=== PATIENT | female | born 1930 | race African-American/Black ===

== ENCOUNTER 2018-10-28 08:19 | Inpatient (IN) | payer MEDICARE ==
[~2018-10-28] VITALS: Ht 160 cm; Wt 49.0 kg
[2018-10-28] MEDS ORDERED: ALBUTEROL SULFATE 2.5 MG/0.5 ML NEB SOLUTION NEB ONE (08:30)
[2018-10-28] MEDS ORDERED: VECURONIUM BROMIDE 10 MG/VIAL IVP ONE ×2 (08:30→12:00)
[2018-10-28] MEDS ORDERED: MethylPREDNISolone SOD SUCC 125 MG/2 ML VIAL IVP ONE (08:30)
[2018-10-28] MEDS ORDERED: CefTRIAXone 1 GM/DEXTROSE 50 ML IV ONE (08:30)
[2018-10-28] MEDS ORDERED: KETAMINE HCL 50 MG/ML 10 ML VIAL IVP ONE (08:30)
[2018-10-28] MEDS ORDERED: IPRATROPIUM BROMIDE 0.5 MG/2.5 ML NEB SOLUTION NEB ONE (08:30)
[2018-10-28 08:46] LABS: ABG A-A DIFF O2 103.6 mmHg (10-20.0); ABG BASE EXCESS 1.3 mmol/L (-2.0-3.0); ABG CARBOXYHEMOGLOBIN 0.3 % (0.0-1.5); ABG HCO3 24.9 mmol/L (22.0-26.0); ABG METHEMOGLOBIN 0.3 % (0.0-1.5); ABG OXYGEN CONTENT 15.2 mL/dL (15.0-23.0); ABG OXYGEN SATURATION 99.7 % (95.0-98.0); ABG OXYHEMOGLOBIN 99.1 % (94.0-100.0); ABG PCO2 62 mmHg (35-45); ABG PH 7.275 (7.35-7.450); ABG TOTAL HEMOGLOBIN 9.8 G/dL (12.0-18.0); PO2, ARTERIAL BG 549.7 mmHg (71.0-79.0); SITE, BLOOD GAS RT RADIAL; SOURCE, BLOOD GAS ARTERIAL; TEMPERATURE, FAHRENHEIT, BG 97.2 FAHREN (96.0-98.6)
[2018-10-28 08:47] LABS: O2 DEVICE,BLOOD GAS VENTILATOR (ROOM AIR); PEEP,BG 5 cm H2O; SPONTANEOUS VT, BG 462 ml; VT, ABG 500 ml
[2018-10-28 08:53] LABS: APPEARANCE,URINE CLEAR (CLEAR); BILIRUBIN,URINE NEGATIVE (NEGATIVE); GLUCOSE, URINE (UA) NEGATIVE (NEGATIVE); KETONES,URINE NEGATIVE (NEGATIVE); LEUKOCYTE ESTERASE ,URINE NEGATIVE (NEGATIVE); NITRATE,URINE NEGATIVE (NEGATIVE); OCCULT BLOOD,URINE TRACE (NEGATIVE); PH,URINE 6.5 (5.0-8.0); PROTEIN,URINE SEE CONFIRM (NEGATIVE); UROBILINOGEN,URINE 0.2 mg/dL (<=1.0)
[2018-10-28] MEDS: PROPOFOL 1000 MG/ISO-OSM 100 ML IV PRN ×3 (08:53→23:03)
[2018-10-28 09:08] LABS: SULFOSALICYLIC ACID,URINE 1+ (Negative); WBC,URINE 0-2 /HPF (0-5)
[2018-10-28 09:09] LABS: BACTERIA,URINE None Seen /HPF (None Seen); SQUAMOUS EPITHELIAL CELL,UR Few /LPF (None Seen)
[2018-10-28 09:29] LABS: TROPONIN I 0.04 ng/mL (0.00-0.05)
[2018-10-28] MEDS ORDERED: SODIUM CHLORIDE 0.9% 1,000 ML IV ONE ×2 (09:30→10:45)
[2018-10-28 09:43] LABS: BASOPHILS % (AUTO) 0.4 % (0.0-2.0); EOSINOPHILS % (AUTO) 2.1 % (1.0-6.0); HEMATOCRIT 23.5 % (36-46); HEMOGLOBIN 7.6 g/dL (12.0-16.0); LYMPHOCYTES # (AUTO) 1.2 K/uL (1.0-4.8); LYMPHOCYTES % (AUTO) 10.3 % (22.0-44.0); MEAN CORPUSCULAR HEMOGLOBIN 25.1 pg (26.0-34.0); MEAN CORPUSCULAR HGB CONC 32.5 G/dL (31.0-37.0); MEAN CORPUSCULAR VOLUME 77 fL (80-100); MONOCYTES # (AUTO) 0.4 K/uL (0.1-1.0); MONOCYTES % (AUTO) 3.3 % (2.0-9.0); NEUTROPHILS % (AUTO) 83.9 % (40.0-70.0); PLATELET COUNT (AUTO) 436 K/uL (150-450); RED BLOOD CELL COUNT(AUTO) 3.03 MIL/uL (4.00-5.20); RED CELL DISTRIBUTION WIDTH 15.4 % (11.5-14.5)
[2018-10-28 09:51] LABS: ANION GAP 10 mmol/L (8-16); CALCIUM, TOTAL 9.2 mg/dL (8.8-10.5); CARBON DIOXIDE 27 mmol/L (22-29); CHLORIDE 96 mmol/L (98-107); CREATININE 1.39 mg/dL (0.60-1.30); GLOMERULAR FILTR. RATE CALC 43 mL/min (>60); GLUCOSE,RANDOM 269 mg/dL (70-110); POTASSIUM 3.1 mmol/L (3.5-5.1); SODIUM SERUM 133 mmol/L (136-145); UREA NITROGEN, BLOOD 29 mg/dL (7-18)
[2018-10-28 09:57] LABS: ALANINE AMINOTRANSFERASE 66 U/L (12-78); ALBUMIN 2.9 g/dL (3.4-5.0); ALKALINE PHOSPHATASE 90 U/L (46-116); ASPARTATE AMINOTRANSFERASE 76 U/L (15-37); BILIRUBIN,TOTAL 0.4 mg/dL (0.1-1.0); LIPASE 109 U/L (73-393); TOTAL PROTEIN, SERUM 6.9 g/dL (6.4-8.2)
[2018-10-28] MEDS ORDERED: 0.9% SODIUM CHLORIDE 10 ML SYRINGE IVP PRN (10:00)
[2018-10-28] MEDS ORDERED: ONDANSETRON HCL 4 MG/2 ML VIAL IVP PRN (10:00)
[2018-10-28 10:01] LABS: B-TYPE NATRIURETIC PEPTIDE 661 pg/mL (0-100)
[2018-10-28 10:02] LABS: LACTIC ACID 2.8 mmol/L (0.4-2.0)
[2018-10-28 10:13] LABS: RETICULOCYTE % (AUTO) 1.9 % (0.5-2.3)
[2018-10-28] MEDS ORDERED: AZITHROMYCIN 500 MG/NS 250 ML IV ONE (10:15)
[2018-10-28] MEDS ORDERED: POTASSIUM CHL 10 MEQ/WATER 50 ML IV ONE (10:15)
[2018-10-28 10:43] LABS: % IRON SATURATION 15.9 % (22-44)
[2018-10-28] MEDS ORDERED: POTASSIUM CHLORIDE 20 MEQ ER TABLET PO PRN (10:45)
[2018-10-28] MEDS ORDERED: DEXTROSE 50%-WATER 25 GM/50 ML SYRINGE IVP PRN (10:45)
[2018-10-28] MEDS ORDERED: MAGNESIUM HYDROXIDE SUSPENSION 30 ML UDCUP PO PRN (10:45)
[2018-10-28] MEDS ORDERED: VALS320T2 PO (10:50)
[2018-10-28] MEDS ORDERED: METO100T14 PO (10:50)
[2018-10-28] MEDS ORDERED: CLOP75TA3 PO (10:50)
[2018-10-28] MEDS ORDERED: ALPR0.255 PO (10:50)
[2018-10-28] MEDS ORDERED: AMLO10TA55 PO (10:50)
[2018-10-28] MEDS ORDERED: ROSU10TA22 PO (10:50)
[2018-10-28] MEDS ORDERED: CHOL10002 PO (10:50)
[2018-10-28] MEDS ORDERED: ALBU8.5H8 IH (10:50)
[2018-10-28 10:57] LABS: ABG A-A DIFF O2 116.2 mmHg (10-20.0); ABG BASE EXCESS 2.8 mmol/L (-2.0-3.0); ABG CARBOXYHEMOGLOBIN 0.3 % (0.0-1.5); ABG HCO3 26.5 mmol/L (22.0-26.0); ABG METHEMOGLOBIN 0.3 % (0.0-1.5); ABG OXYGEN CONTENT 12.6 mL/dL (15.0-23.0); ABG OXYGEN SATURATION 97.4 % (95.0-98.0); ABG OXYHEMOGLOBIN 96.8 % (94.0-100.0); ABG PCO2 51 mmHg (35-45); ABG PH 7.362 (7.35-7.450); ABG TOTAL HEMOGLOBIN 9.1 G/dL (12.0-18.0); PO2, ARTERIAL BG 111.7 mmHg (71.0-79.0); SOURCE, BLOOD GAS ARTERIAL; TEMPERATURE, FAHRENHEIT, BG 96.6 FAHREN (96.0-98.6)
[2018-10-28 10:58] LABS: O2 DEVICE,BLOOD GAS VENTILATOR (ROOM AIR); PEEP,BG 5 cm H2O; SITE, BLOOD GAS RT RADIAL; SPONTANEOUS VT, BG 408 ml; VT, ABG 450 ml
[2018-10-28] MEDS: IPRATROPIUM BROMIDE 0.5 MG/2.5 ML NEB SOLUTION NEB SCH ×3 (11:00→19:19)
[2018-10-28] MEDS: ALBUTEROL SULFATE 2.5 MG/0.5 ML NEB SOLUTION NEB SCH ×3 (11:00→19:20)
[2018-10-28] MEDS: FUROSEMIDE 20 MG/2 ML VIAL IVP SCH (11:49)
[2018-10-28 12:15] LABS: INFLUENZA TYPE A NEGATIVE FOR TYPE A (NEGATIVE); INFLUENZA TYPE B NEGATIVE FOR TYPE B (NEGATIVE)
[2018-10-28] MEDS: MethylPREDNISolone SOD SUCC 125 MG/2 ML VIAL IVP SCH ×2 (12:34→18:40)
[2018-10-28 14:04] LABS: GLUCOSE,POINT OF CARE 230 MG/DL (70-110)
[2018-10-28] MEDS: INSULIN LISPRO 100 UNITS/ML SQ PRN ×2 (15:03→23:21)
[2018-10-28] MEDS ORDERED: HEPARIN SODIUM,PORCINE 5,000 UNITS/ML VIAL SQ SCH (16:00)
[2018-10-28] MEDS ORDERED: HEPARIN SODIUM,PORCINE 5,000 UNITS/ML VIAL IVP PRN ×2 (19:00)
[2018-10-28] MEDS ORDERED: HEPARIN SODIUM 25000 UNITS/D5W 250 ML IV PRN (19:11)
[2018-10-28 20:00] VITALS: BP 152/69
[2018-10-28] MEDS: DOCUSATE SODIUM 100 MG CAPSULE PO SCH (21:20)
[2018-10-28] MEDS: FAMOTIDINE 20 MG TABLET PO SCH (21:20)
[2018-10-28] MEDS: ATORVASTATIN CALCIUM 20 MG TABLET PO SCH (21:20)
[2018-10-28] MEDS ORDERED: SODIUM CHLORIDE 0.9% 250 ML IV ONE (22:08)
[2018-10-28] MEDS: PIPERACILLIN/TAZO 3.375 GM/D5W 50 ML IV SCH (22:26)
[2018-10-28] MEDS ORDERED: PROPOFOL 1000 MG/ISO-OSM 100 ML IV ONE (22:57)
[2018-10-28] MEDS: DOXYCYCLINE HYCLATE 100 MG in DEXTROSE 5%-WATER 100 ML IV SCH (23:02)
[2018-10-29] VITALS (7 sets, daily range): BP systolic 143–179; BP diastolic 41–59
[2018-10-29] MEDS: MethylPREDNISolone SOD SUCC 125 MG/2 ML VIAL IVP SCH ×5 (00:05→23:31)
[2018-10-29] MEDS: PIPERACILLIN/TAZO 3.375 GM/D5W 50 ML IV SCH ×4 (03:57→21:45)
[2018-10-29 05:01] LABS: BASOPHILS % (AUTO) 0.7 % (0.0-2.0); EOSINOPHILS % (AUTO) 0 % (1.0-6.0); HEMATOCRIT 24.2 % (36-46); HEMOGLOBIN 8.3 g/dL (12.0-16.0); LYMPHOCYTES # (AUTO) 1.1 K/uL (1.0-4.8); LYMPHOCYTES % (AUTO) 7.6 % (22.0-44.0); MEAN CORPUSCULAR HGB CONC 34.2 G/dL (31.0-37.0); MEAN CORPUSCULAR VOLUME 76 fL (80-100); MONOCYTES # (AUTO) 0.2 K/uL (0.1-1.0); MONOCYTES % (AUTO) 1.5 % (2.0-9.0); NEUTROPHILS # (AUTO) 12.7 K/uL (1.8-7.7); PLATELET COUNT (AUTO) 375 K/uL (150-450); RED BLOOD CELL COUNT(AUTO) 3.19 MIL/uL (4.00-5.20); RED CELL DISTRIBUTION WIDTH 15.4 % (11.5-14.5)
[2018-10-29 05:02] LABS: NEUTROPHILS % (AUTO) 90.2 % (40.0-70.0)
[2018-10-29] MEDS: PROPOFOL 1000 MG/ISO-OSM 100 ML IV PRN ×3 (05:31→21:45)
[2018-10-29] MEDS ORDERED: DIGOXIN 250 MCG/ML 2 ML AMP ONE (05:58)
[2018-10-29] MEDS ORDERED: DIGOXIN 250 MCG/ML 2 ML AMP IVP ONE ×2 (06:00→11:59)
[2018-10-29 06:06] LABS: CALCIUM, TOTAL 8.9 mg/dL (8.8-10.5); CREATININE 1.13 mg/dL (0.60-1.30)
[2018-10-29 06:07] LABS: POTASSIUM 2.9 mmol/L (3.5-5.1)
[2018-10-29] MEDS: INSULIN LISPRO 100 UNITS/ML SQ PRN ×4 (06:10→23:33)
[2018-10-29] MEDS ORDERED: CARVEDILOL 3.125 MG TABLET PO SCH (06:15)
[2018-10-29] MEDS: POTASSIUM CHL 10 MEQ/WATER 50 ML IV PRN ×6 (06:16→23:31)
[2018-10-29 07:29] LABS: GLUCOSE,POINT OF CARE 198 MG/DL (70-110)
[2018-10-29 07:29] LABS: GLUCOSE,POINT OF CARE 211 MG/DL (70-110)
[2018-10-29] MEDS: ACETAMINOPHEN 325 MG TABLET PO PRN ×3 (08:00→20:06)
[2018-10-29 08:23] LABS: MAGNESIUM 1.6 mg/dL (1.80-2.40)
[2018-10-29] MEDS: FAMOTIDINE 20 MG TABLET PO SCH ×2 (08:41→20:05)
[2018-10-29] MEDS: CLOPIDOGREL BISULFATE 75 MG TABLET PO SCH (08:41)
[2018-10-29] MEDS: DOCUSATE SODIUM 100 MG CAPSULE PO SCH ×2 (08:41→20:05)
[2018-10-29] MEDS: ASPIRIN 81 MG CHEWABLE TABLET PO SCH (08:42)
[2018-10-29] MEDS: FUROSEMIDE 20 MG/2 ML VIAL IVP SCH (08:42)
[2018-10-29] MEDS ORDERED: CARVEDILOL 6.25 MG TABLET PO SCH ×2 (09:00→21:00)
[2018-10-29] MEDS ORDERED: MAGNESIUM SULFATE 2 GM/WATER 50 ML IV PRN (09:30)
[2018-10-29] MEDS ORDERED: MAGNESIUM SULFATE 4 GM/WATER 100 ML IV PRN (09:30)
[2018-10-29] MEDS ORDERED: MAGNESIUM OXIDE 400 MG TABLET PO PRN (09:30)
[2018-10-29] MEDS ORDERED: CefTRIAXone 1 GM/DEXTROSE 50 ML IV SCH (10:00)
[2018-10-29] MEDS ORDERED: AZITHROMYCIN 500 MG/NS 250 ML IV SCH (10:30)
[2018-10-29] MEDS: DOXYCYCLINE HYCLATE 100 MG in DEXTROSE 5%-WATER 100 ML IV SCH ×2 (11:12→23:04)
[2018-10-29] MEDS ORDERED: HEPARIN SODIUM,PORCINE 5,000 UNITS/ML VIAL IVP PRN ×2 (13:24→13:25)
[2018-10-29] MEDS: METOPROLOL TARTRATE 50 MG TABLET PO SCH ×2 (14:12→20:06)
[2018-10-29] MEDS: POTASSIUM CHL 10 MEQ/WATER 50 ML IV SCH ×2 (14:21→15:30)
[2018-10-29] MEDS ORDERED: SODIUM CHLORIDE 0.9% 250 ML IV ONE ×2 (17:54→23:17)
[2018-10-29 18:53] LABS: GLUCOSE,POINT OF CARE 196 MG/DL (70-110)
[2018-10-29] MEDS: ATORVASTATIN CALCIUM 20 MG TABLET PO SCH (20:05)
[2018-10-29] MEDS: HydrALAZINE HCL 20 MG/ML VIAL IVP PRN (23:31)
[2018-10-30] VITALS: BP 164/43
[2018-10-30] MEDS: POTASSIUM CHL 10 MEQ/WATER 50 ML IV PRN ×2 (01:16→02:48)
[2018-10-30 04:00] VITALS: BP 163/41
[2018-10-30] MEDS: PIPERACILLIN/TAZO 3.375 GM/D5W 50 ML IV SCH (04:23)
[2018-10-30 05:04] LABS: CALCIUM, TOTAL 9.3 mg/dL (8.8-10.5); CREATININE 1.15 mg/dL (0.60-1.30); POTASSIUM 3.7 mmol/L (3.5-5.1)
[2018-10-30] MEDS: MethylPREDNISolone SOD SUCC 125 MG/2 ML VIAL IVP SCH ×3 (05:26→23:43)
[2018-10-30] MEDS: METOPROLOL TARTRATE 50 MG TABLET PO SCH ×2 (05:28→20:26)
[2018-10-30] MEDS: PROPOFOL 1000 MG/ISO-OSM 100 ML IV PRN ×2 (05:29→15:33)
[2018-10-30] MEDS: INSULIN LISPRO 100 UNITS/ML SQ PRN ×3 (05:31→17:33)
[2018-10-30] MEDS: ACETAMINOPHEN 325 MG TABLET PO PRN ×2 (05:34→14:06)
[2018-10-30 05:49] LABS: GLUCOSE,POINT OF CARE 191 MG/DL (70-110)
[2018-10-30 05:49] LABS: GLUCOSE,POINT OF CARE 225 MG/DL (70-110)
[2018-10-30 05:49] LABS: GLUCOSE,POINT OF CARE 242 MG/DL (70-110)
[2018-10-30 08:00] VITALS: BP 147/38
[2018-10-30] MEDS: ASPIRIN 81 MG CHEWABLE TABLET PO SCH (08:27)
[2018-10-30] MEDS: CLOPIDOGREL BISULFATE 75 MG TABLET PO SCH (08:27)
[2018-10-30] MEDS: FAMOTIDINE 20 MG TABLET PO SCH ×2 (08:27→20:26)
[2018-10-30] MEDS: FUROSEMIDE 20 MG/2 ML VIAL IVP SCH (08:27)
[2018-10-30] MEDS: DOCUSATE SODIUM 100 MG CAPSULE PO SCH ×2 (08:28→20:26)
[2018-10-30 08:42] LABS: BASOPHILS % (AUTO) 0.7 % (0.0-2.0); EOSINOPHILS % (AUTO) 0.1 % (1.0-6.0); HEMOGLOBIN 9.1 g/dL (12.0-16.0); LYMPHOCYTES % (AUTO) 5.1 % (22.0-44.0); MEAN CORPUSCULAR HEMOGLOBIN 24.9 pg (26.0-34.0); MEAN CORPUSCULAR HGB CONC 32.5 G/dL (31.0-37.0); MEAN CORPUSCULAR VOLUME 77 fL (80-100); MONOCYTES # (AUTO) 0.5 K/uL (0.1-1.0); MONOCYTES % (AUTO) 2.7 % (2.0-9.0); NEUTROPHILS # (AUTO) 18.2 K/uL (1.8-7.7); PLATELET COUNT (AUTO) 488 K/uL (150-450); RED BLOOD CELL COUNT(AUTO) 3.66 MIL/uL (4.00-5.20); RED CELL DISTRIBUTION WIDTH 15.4 % (11.5-14.5)
[2018-10-30 08:43] LABS: NEUTROPHILS % (AUTO) 91.4 % (40.0-70.0)
[2018-10-30] MEDS: PIPERACILLIN SODIUM/TAZOBACTAM 2.25 GM in DEXTROSE 5%-WATER 50 ML IV SCH ×3 (10:33→22:03)
[2018-10-30] MEDS: HEPARIN SODIUM,PORCINE 5,000 UNITS/ML VIAL SQ SCH ×2 (10:33→20:26)
[2018-10-30] MEDS: DOXYCYCLINE HYCLATE 100 MG in DEXTROSE 5%-WATER 100 ML IV SCH ×2 (11:06→23:42)
[2018-10-30 11:49] LABS: GLUCOSE,POINT OF CARE 275 MG/DL (70-110)
[2018-10-30 12:00] VITALS: BP 158/52
[2018-10-30] MEDS ORDERED: LORazepam 2 MG/ML VIAL IVP PRN (12:45)
[2018-10-30] MEDS ORDERED: SODIUM CHLORIDE 0.9% 250 ML IV ONE (15:45)
[2018-10-30 16:00] VITALS: BP 149/53
[2018-10-30 20:00] VITALS: BP 129/48
[2018-10-30] MEDS: ATORVASTATIN CALCIUM 20 MG TABLET PO SCH (20:26)
[2018-10-30] MEDS: HydrALAZINE HCL 20 MG/ML VIAL IVP PRN (23:43)
[2018-10-31] VITALS (8 sets, daily range): BP systolic 133–159; BP diastolic 36–95
[2018-10-31] MEDS: PROPOFOL 1000 MG/ISO-OSM 100 ML IV PRN ×2 (00:11→23:41)
[2018-10-31] MEDS: INSULIN LISPRO 100 UNITS/ML SQ PRN ×4 (00:28→23:43)
[2018-10-31] MEDS: PIPERACILLIN SODIUM/TAZOBACTAM 2.25 GM in DEXTROSE 5%-WATER 50 ML IV SCH ×4 (04:24→21:00)
[2018-10-31] MEDS: MORPHINE SULFATE 2 MG/ML SYRINGE IVP PRN ×2 (04:24→08:55)
[2018-10-31] MEDS: METOPROLOL TARTRATE 50 MG TABLET PO SCH ×2 (05:46→20:53)
[2018-10-31 07:26] LABS: CALCIUM, TOTAL 9.2 mg/dL (8.8-10.5); CREATININE 1.32 mg/dL (0.60-1.30)
[2018-10-31] MEDS: POTASSIUM CHL 10 MEQ/WATER 50 ML IV PRN ×7 (07:43→18:49)
[2018-10-31] MEDS: FAMOTIDINE 20 MG TABLET PO SCH ×2 (09:07→20:52)
[2018-10-31] MEDS: ASPIRIN 81 MG CHEWABLE TABLET PO SCH (09:08)
[2018-10-31] MEDS: CLOPIDOGREL BISULFATE 75 MG TABLET PO SCH (09:08)
[2018-10-31] MEDS: HEPARIN SODIUM,PORCINE 5,000 UNITS/ML VIAL SQ SCH ×2 (09:08→20:53)
[2018-10-31] MEDS: DOCUSATE SODIUM 100 MG CAPSULE PO SCH ×2 (09:08→20:53)
[2018-10-31] MEDS: FUROSEMIDE 20 MG/2 ML VIAL IVP SCH (09:09)
[2018-10-31] MEDS: HydrALAZINE HCL 20 MG/ML VIAL IVP PRN (09:45)
[2018-10-31 10:04] LABS: GLUCOSE,POINT OF CARE 279 MG/DL (70-110)
[2018-10-31 10:04] LABS: GLUCOSE,POINT OF CARE 247 MG/DL (70-110)
[2018-10-31 10:04] LABS: GLUCOSE,POINT OF CARE 251 MG/DL (70-110)
[2018-10-31] MEDS ORDERED: METOPROLOL SUCCINATE 50 MG ER TABLET PO SCH ×2 (10:15→21:00)
[2018-10-31] MEDS ORDERED: METOPROLOL TARTRATE 50 MG TABLET PO ONE (10:30)
[2018-10-31] MEDS ORDERED: SODIUM CHLORIDE 0.9% 250 ML IV ONE ×2 (11:05→20:31)
[2018-10-31] MEDS ORDERED: DIGOXIN 250 MCG/ML 2 ML AMP IVP PRN (12:00)
[2018-10-31] MEDS: DOXYCYCLINE HYCLATE 100 MG in DEXTROSE 5%-WATER 100 ML IV SCH ×2 (12:33→23:39)
[2018-10-31] MEDS ORDERED: DIGOXIN 250 MCG/ML 2 ML AMP IVP ONE (13:00)
[2018-10-31 13:54] LABS: GLUCOSE,POINT OF CARE 233 MG/DL (70-110)
[2018-10-31] MEDS: MethylPREDNISolone SOD SUCC 40 MG/ML VIAL IVP SCH ×2 (18:43→23:39)
[2018-10-31 20:27] LABS: GLUCOSE,POINT OF CARE 177 MG/DL (70-110)
[2018-10-31] MEDS: ACETAMINOPHEN 325 MG TABLET PO PRN (20:52)
[2018-10-31] MEDS: ATORVASTATIN CALCIUM 20 MG TABLET PO SCH (20:52)
[2018-11-01] VITALS: BP 143/51
[2018-11-01 04:00] VITALS: BP 136/57
[2018-11-01] MEDS: PIPERACILLIN SODIUM/TAZOBACTAM 2.25 GM in DEXTROSE 5%-WATER 50 ML IV SCH ×4 (04:21→21:38)
[2018-11-01] MEDS: INSULIN LISPRO 100 UNITS/ML SQ PRN ×2 (04:29→13:04)
[2018-11-01 05:06] LABS: BASOPHILS % (AUTO) 0.3 % (0.0-2.0); EOSINOPHILS % (AUTO) 0.3 % (1.0-6.0); HEMATOCRIT 26.2 % (36-46); HEMOGLOBIN 8.5 g/dL (12.0-16.0); LYMPHOCYTES # (AUTO) 0.7 K/uL (1.0-4.8); LYMPHOCYTES % (AUTO) 4.8 % (22.0-44.0); MEAN CORPUSCULAR HEMOGLOBIN 24.6 pg (26.0-34.0); MEAN CORPUSCULAR HGB CONC 32.3 G/dL (31.0-37.0); MEAN CORPUSCULAR VOLUME 76 fL (80-100); MONOCYTES # (AUTO) 0.3 K/uL (0.1-1.0); MONOCYTES % (AUTO) 1.9 % (2.0-9.0); NEUTROPHILS # (AUTO) 12.8 K/uL (1.8-7.7); PLATELET COUNT (AUTO) 392 K/uL (150-450); RED BLOOD CELL COUNT(AUTO) 3.44 MIL/uL (4.00-5.20); RED CELL DISTRIBUTION WIDTH 15.7 % (11.5-14.5)
[2018-11-01 05:11] LABS: NEUTROPHILS % (AUTO) 92.7 % (40.0-70.0)
[2018-11-01 05:21] LABS: CREATININE 1.42 mg/dL (0.60-1.30); POTASSIUM 3.9 mmol/L (3.5-5.1)
[2018-11-01] MEDS: METOPROLOL TARTRATE 50 MG TABLET PO SCH ×2 (06:42→20:54)
[2018-11-01 08:00] VITALS: BP 175/68
[2018-11-01] MEDS: MethylPREDNISolone SOD SUCC 40 MG/ML VIAL IVP SCH ×2 (08:34→16:00)
[2018-11-01 08:40] LABS: GLUCOSE,POINT OF CARE 244 MG/DL (70-110)
[2018-11-01 08:40] LABS: GLUCOSE,POINT OF CARE 301 MG/DL (70-110)
[2018-11-01] MEDS: DOCUSATE SODIUM 100 MG CAPSULE PO SCH ×2 (09:00→20:55)
[2018-11-01] MEDS: ASPIRIN 81 MG CHEWABLE TABLET PO SCH (09:16)
[2018-11-01] MEDS: FAMOTIDINE 20 MG TABLET PO SCH ×2 (09:16→20:56)
[2018-11-01] MEDS: CLOPIDOGREL BISULFATE 75 MG TABLET PO SCH (09:17)
[2018-11-01] MEDS: FUROSEMIDE 20 MG/2 ML VIAL IVP SCH (09:17)
[2018-11-01] MEDS: HEPARIN SODIUM,PORCINE 5,000 UNITS/ML VIAL SQ SCH ×2 (09:18→21:38)
[2018-11-01] MEDS: MORPHINE SULFATE 2 MG/ML SYRINGE IVP PRN (10:39)
[2018-11-01] MEDS: DOXYCYCLINE HYCLATE 100 MG in DEXTROSE 5%-WATER 100 ML IV SCH (11:22)
[2018-11-01 12:00] VITALS: BP 149/85
[2018-11-01] MEDS: ACETAMINOPHEN 325 MG TABLET PO PRN (13:02)
[2018-11-01 13:03] LABS: ABG A-A DIFF O2 45.8 mmHg (10-20.0); ABG BASE EXCESS 5.1 mmol/L (-2.0-3.0); ABG CARBOXYHEMOGLOBIN 0.3 % (0.0-1.5); ABG HCO3 28.8 mmol/L (22.0-26.0); ABG METHEMOGLOBIN 0.3 % (0.0-1.5); ABG OXYGEN CONTENT 13.7 mL/dL (15.0-23.0); ABG OXYGEN SATURATION 98.1 % (95.0-98.0); ABG OXYHEMOGLOBIN 97.5 % (94.0-100.0); ABG PCO2 39 mmHg (35-45); ABG PH 7.484 (7.35-7.450); ABG TOTAL HEMOGLOBIN 9.8 G/dL (12.0-18.0); PO2, ARTERIAL BG 122.4 mmHg (71.0-79.0); SOURCE, BLOOD GAS ARTERIAL; TEMPERATURE, FAHRENHEIT, BG 98.6 FAHREN (96.0-98.6)
[2018-11-01 13:04] LABS: O2 DEVICE,BLOOD GAS VENTILATOR (ROOM AIR); SITE, BLOOD GAS RT RADIAL; VENT MODE, BG SPONTANEOUS (ROOM AIR)
[2018-11-01 13:05] LABS: CPAP, BG 0 cm H2O; PEEP,BG 0 cm H2O; PRESSURE SUPPORT, BG 8 cm H2O; SPONTANEOUS VT, BG 258 ml
[2018-11-01 13:10] LABS: GLUCOSE,POINT OF CARE 232 MG/DL (70-110)
[2018-11-01 16:00] VITALS: BP 127/70
[2018-11-01] MEDS ORDERED: SODIUM CHLORIDE 0.9% 250 ML IV ONE (16:08)
[2018-11-01] MEDS: DILTIAZEM HCL 125 MG in DEXTROSE 5%-WATER 100 ML IV SCH (16:12)
[2018-11-01 20:00] VITALS: BP 123/70
[2018-11-01] MEDS: DIGOXIN 250 MCG/ML 2 ML AMP IVP SCH (20:55)
[2018-11-01] MEDS: ATORVASTATIN CALCIUM 20 MG TABLET PO SCH (20:55)
[2018-11-01 21:40] LABS: GLUCOSE,POINT OF CARE 127 MG/DL (70-110)
[2018-11-01 22:27] LABS: ABG A-A DIFF O2 248.5 mmHg (10-20.0); ABG BASE EXCESS 0.7 mmol/L (-2.0-3.0); ABG HCO3 24.8 mmol/L (22.0-26.0); ABG METHEMOGLOBIN 0.3 % (0.0-1.5); ABG OXYGEN CONTENT 11.2 mL/dL (15.0-23.0); ABG OXYGEN SATURATION 86.3 % (95.0-98.0); ABG PCO2 45 mmHg (35-45); ABG PH 7.375 (7.35-7.450); ABG TOTAL HEMOGLOBIN 9.2 G/dL (12.0-18.0); PO2, ARTERIAL BG 57.4 mmHg (71.0-79.0); SOURCE, BLOOD GAS ARTERIAL
[2018-11-01 22:29] LABS: SITE, BLOOD GAS RT RADIAL
[2018-11-02] VITALS (7 sets, daily range): BP systolic 133–175; BP diastolic 55–75
[2018-11-02 00:24] LABS: GLUCOSE,POINT OF CARE 277 MG/DL (70-110)
[2018-11-02] MEDS: DOXYCYCLINE HYCLATE 100 MG in DEXTROSE 5%-WATER 100 ML IV SCH ×3 (00:25→23:09)
[2018-11-02] MEDS: MethylPREDNISolone SOD SUCC 40 MG/ML VIAL IVP SCH ×3 (00:25→17:12)
[2018-11-02] MEDS: INSULIN LISPRO 100 UNITS/ML SQ PRN ×5 (00:27→20:23)
[2018-11-02] MEDS: PIPERACILLIN SODIUM/TAZOBACTAM 2.25 GM in DEXTROSE 5%-WATER 50 ML IV SCH ×4 (03:10→22:14)
[2018-11-02 04:58] LABS: BASOPHILS % (AUTO) 0.3 % (0.0-2.0); EOSINOPHILS % (AUTO) 0 % (1.0-6.0); HEMATOCRIT 26.8 % (36-46); HEMOGLOBIN 8.6 g/dL (12.0-16.0); LYMPHOCYTES # (AUTO) 1.1 K/uL (1.0-4.8); LYMPHOCYTES % (AUTO) 5.7 % (22.0-44.0); MEAN CORPUSCULAR HEMOGLOBIN 24.9 pg (26.0-34.0); MEAN CORPUSCULAR HGB CONC 32.2 G/dL (31.0-37.0); MEAN CORPUSCULAR VOLUME 77 fL (80-100); MONOCYTES # (AUTO) 0.4 K/uL (0.1-1.0); MONOCYTES % (AUTO) 2.3 % (2.0-9.0); NEUTROPHILS # (AUTO) 17.8 K/uL (1.8-7.7); PLATELET COUNT (AUTO) 420 K/uL (150-450); RED BLOOD CELL COUNT(AUTO) 3.46 MIL/uL (4.00-5.20); RED CELL DISTRIBUTION WIDTH 15.8 % (11.5-14.5)
[2018-11-02 04:59] LABS: NEUTROPHILS % (AUTO) 91.7 % (40.0-70.0)
[2018-11-02] MEDS: DILTIAZEM HCL 125 MG in DEXTROSE 5%-WATER 100 ML IV SCH ×2 (05:19→17:29)
[2018-11-02] MEDS: DIGOXIN 250 MCG/ML 2 ML AMP IVP SCH ×2 (05:20)
[2018-11-02 05:25] LABS: CREATININE 1.38 mg/dL (0.60-1.30); POTASSIUM 3.4 mmol/L (3.5-5.1)
[2018-11-02] MEDS: POTASSIUM CHL 10 MEQ/WATER 50 ML IV PRN ×3 (05:52→10:47)
[2018-11-02] MEDS: FAMOTIDINE 20 MG TABLET PO SCH ×2 (08:24→20:15)
[2018-11-02] MEDS: ASPIRIN 81 MG CHEWABLE TABLET PO SCH (08:24)
[2018-11-02] MEDS: CLOPIDOGREL BISULFATE 75 MG TABLET PO SCH (08:24)
[2018-11-02] MEDS: DOCUSATE SODIUM 100 MG CAPSULE PO SCH ×2 (08:24→20:16)
[2018-11-02] MEDS: FUROSEMIDE 20 MG/2 ML VIAL IVP SCH (08:39)
[2018-11-02] MEDS: HEPARIN SODIUM,PORCINE 5,000 UNITS/ML VIAL SQ SCH ×2 (08:40→20:15)
[2018-11-02] MEDS: METOPROLOL TARTRATE 50 MG TABLET PO SCH ×2 (09:15→20:15)
[2018-11-02 20:04] LABS: GLUCOSE,POINT OF CARE 279 MG/DL (70-110)
[2018-11-02 20:04] LABS: GLUCOSE,POINT OF CARE 154 MG/DL (70-110)
[2018-11-02] MEDS: ATORVASTATIN CALCIUM 20 MG TABLET PO SCH (20:15)
[2018-11-02] MEDS: ACETAMINOPHEN 325 MG TABLET PO PRN (20:23)
[2018-11-03] VITALS: BP 167/56
[2018-11-03] MEDS: MethylPREDNISolone SOD SUCC 40 MG/ML VIAL IVP SCH ×4 (00:04→23:44)
[2018-11-03 00:14] LABS: GLUCOSE,POINT OF CARE 247 MG/DL (70-110)
[2018-11-03] MEDS: HydrALAZINE HCL 20 MG/ML VIAL IVP PRN (02:07)
[2018-11-03] MEDS: METOPROLOL TARTRATE 50 MG TABLET PO SCH ×2 (03:34→21:14)
[2018-11-03 04:00] VITALS: BP 161/55
[2018-11-03] MEDS: PIPERACILLIN SODIUM/TAZOBACTAM 2.25 GM in DEXTROSE 5%-WATER 50 ML IV SCH ×4 (04:40→21:15)
[2018-11-03] MEDS: INSULIN LISPRO 100 UNITS/ML SQ PRN ×4 (06:36→21:27)
[2018-11-03 06:50] LABS: GLUCOSE,POINT OF CARE 313 MG/DL (70-110)
[2018-11-03] MEDS: DILTIAZEM HCL 125 MG in DEXTROSE 5%-WATER 100 ML IV SCH ×2 (07:34→19:43)
[2018-11-03 08:00] VITALS: BP_SYST 153; BP_SYST 163; BP_DIAS 62; BP_DIAS 72
[2018-11-03 08:23] LABS: CALCIUM, TOTAL 9.5 mg/dL (8.8-10.5); CREATININE 1.3 mg/dL (0.60-1.30); POTASSIUM 3.5 mmol/L (3.5-5.1)
[2018-11-03] MEDS: HEPARIN SODIUM,PORCINE 5,000 UNITS/ML VIAL SQ SCH ×2 (08:23→21:14)
[2018-11-03] MEDS: DOCUSATE SODIUM 100 MG CAPSULE PO SCH ×2 (09:00→21:00)
[2018-11-03] MEDS: POTASSIUM CHL 10 MEQ/WATER 50 ML IV PRN ×3 (09:19→11:00)
[2018-11-03] MEDS: ASPIRIN 81 MG CHEWABLE TABLET PO SCH (09:19)
[2018-11-03] MEDS: FAMOTIDINE 20 MG TABLET PO SCH ×2 (09:20→21:14)
[2018-11-03] MEDS: FUROSEMIDE 20 MG/2 ML VIAL IVP SCH (09:20)
[2018-11-03] MEDS: CLOPIDOGREL BISULFATE 75 MG TABLET PO SCH (09:20)
[2018-11-03] MEDS: DOXYCYCLINE HYCLATE 100 MG in DEXTROSE 5%-WATER 100 ML IV SCH ×2 (11:00→23:43)
[2018-11-03 12:00] VITALS: BP 169/59
[2018-11-03] MEDS ORDERED: METOPROLOL TARTRATE 50 MG TABLET PO ONE (12:45)
[2018-11-03 15:04] LABS: GLUCOSE,POINT OF CARE 262 MG/DL (70-110)
[2018-11-03 16:00] VITALS: BP 152/62
[2018-11-03] MEDS ORDERED: SODIUM CHLORIDE 0.9% 250 ML IV ONE (16:20)
[2018-11-03] MEDS: ACETAMINOPHEN 325 MG TABLET PO PRN ×2 (19:43→21:31)
[2018-11-03 20:00] VITALS: BP 167/56
[2018-11-03] MEDS: ATORVASTATIN CALCIUM 20 MG TABLET PO SCH (21:14)
[2018-11-03 23:14] LABS: GLUCOSE,POINT OF CARE 228 MG/DL (70-110)
[2018-11-03 23:14] LABS: GLUCOSE,POINT OF CARE 214 MG/DL (70-110)
[2018-11-04] VITALS: BP 184/65
[2018-11-04] MEDS: HydrALAZINE HCL 20 MG/ML VIAL IVP PRN ×3 (01:31→17:06)
[2018-11-04 04:00] VITALS: BP 146/49
[2018-11-04] MEDS ORDERED: SODIUM CHLORIDE 0.9% 100 ML ONE (04:08)
[2018-11-04] MEDS: PIPERACILLIN SODIUM/TAZOBACTAM 2.25 GM in DEXTROSE 5%-WATER 50 ML IV SCH ×3 (04:28→17:01)
[2018-11-04 04:58] LABS: BASOPHILS % (AUTO) 0.3 % (0.0-2.0); EOSINOPHILS % (AUTO) 0 % (1.0-6.0); HEMATOCRIT 25.3 % (36-46); HEMOGLOBIN 8.1 g/dL (12.0-16.0); LYMPHOCYTES # (AUTO) 0.6 K/uL (1.0-4.8); LYMPHOCYTES % (AUTO) 3.6 % (22.0-44.0); MEAN CORPUSCULAR HEMOGLOBIN 25.3 pg (26.0-34.0); MEAN CORPUSCULAR HGB CONC 32.1 G/dL (31.0-37.0); MEAN CORPUSCULAR VOLUME 79 fL (80-100); MONOCYTES # (AUTO) 0.2 K/uL (0.1-1.0); MONOCYTES % (AUTO) 1.4 % (2.0-9.0); NEUTROPHILS # (AUTO) 15.7 K/uL (1.8-7.7); PLATELET COUNT (AUTO) 441 K/uL (150-450); RED BLOOD CELL COUNT(AUTO) 3.21 MIL/uL (4.00-5.20); RED CELL DISTRIBUTION WIDTH 15.6 % (11.5-14.5)
[2018-11-04 05:00] LABS: NEUTROPHILS % (AUTO) 94.7 % (40.0-70.0)
[2018-11-04 05:21] LABS: CALCIUM, TOTAL 9.8 mg/dL (8.8-10.5); CREATININE 1.36 mg/dL (0.60-1.30); POTASSIUM 3.7 mmol/L (3.5-5.1)
[2018-11-04] MEDS: INSULIN LISPRO 100 UNITS/ML SQ PRN ×2 (05:32→17:50)
[2018-11-04 05:39] LABS: GLUCOSE,POINT OF CARE 266 MG/DL (70-110)
[2018-11-04 08:00] VITALS: BP 165/72
[2018-11-04] MEDS: METOPROLOL TARTRATE 50 MG TABLET PO SCH ×2 (08:44→17:49)
[2018-11-04] MEDS ORDERED: AmLODIPine BESYLATE 5 MG TABLET PO SCH (09:00)
[2018-11-04] MEDS: MethylPREDNISolone SOD SUCC 40 MG/ML VIAL IVP SCH ×2 (10:01→17:01)
[2018-11-04] MEDS: DOCUSATE SODIUM 100 MG CAPSULE PO SCH (10:01)
[2018-11-04] MEDS: FAMOTIDINE 20 MG TABLET PO SCH (10:02)
[2018-11-04] MEDS: ASPIRIN 81 MG CHEWABLE TABLET PO SCH (10:02)
[2018-11-04] MEDS: FUROSEMIDE 20 MG/2 ML VIAL IVP SCH (10:08)
[2018-11-04] MEDS: HEPARIN SODIUM,PORCINE 5,000 UNITS/ML VIAL SQ SCH (10:09)
[2018-11-04] MEDS: CLOPIDOGREL BISULFATE 75 MG TABLET PO SCH (10:09)
[2018-11-04] MEDS: DOXYCYCLINE HYCLATE 100 MG in DEXTROSE 5%-WATER 100 ML IV SCH (11:32)
[2018-11-04 12:00] VITALS: BP 167/64
[2018-11-04 12:44] LABS: GLUCOSE,POINT OF CARE 387 MG/DL (70-110)
[2018-11-04 16:00] VITALS: BP 171/62
[2018-11-04 18:45] LABS: GLUCOSE,POINT OF CARE 253 MG/DL (70-110)
== END 2018-11-04 19:10 | disposition short-term general hospital (02) | DRG 208 ==
LOC: EMS 08:19 → ICUN 17:35 → ICU 10-31 17:00
PROVIDERS: ADMIT Internal Medicine; ATTEND Internal Medicine
PROC: 5A1945Z Respiratory Ventilation, 24-96 Consecutive Hours (ICD-10-PCS; principal; 2018-10-28)
PROC: 0BH17EZ Insertion of Endotracheal Airway into Trachea, Via Natural or Artificial Opening (ICD-10-PCS; 2018-10-28)
PROC: 5A09357 Assistance with Respiratory Ventilation, Less than 24 Consecutive Hours, Continuous Positive Airway Pressure (ICD-10-PCS; 2018-10-28)
PROC: 05HY33Z Insertion of Infusion Device into Upper Vein, Percutaneous Approach (ICD-10-PCS; 2018-10-31)
PROC: B54MZZA Ultrasonography of Right Upper Extremity Veins, Guidance (ICD-10-PCS; 2018-10-31)
DX: J96.00 Acute respiratory failure, unspecified whether with hypoxia or hypercapnia (principal); J18.9 Pneumonia, unspecified organism; I21.4 Non-ST elevation (NSTEMI) myocardial infarction; E87.1 Hypo-osmolality and hyponatremia; N17.9 Acute kidney failure, unspecified; E44.0 Moderate protein-calorie malnutrition; J44.0 Chronic obstructive pulmonary disease with (acute) lower respiratory infection; E87.2 Acidosis; Z68.1 Body mass index [BMI] 19.9 or less, adult; I11.0 Hypertensive heart disease with heart failure; I50.9 Heart failure, unspecified; I25.10 Atherosclerotic heart disease of native coronary artery without angina pectoris; E11.9 Type 2 diabetes mellitus without complications; D50.9 Iron deficiency anemia, unspecified; E78.5 Hyperlipidemia, unspecified; E87.6 Hypokalemia; H54.62 Unqualified visual loss, left eye, normal vision right eye; I35.0 Nonrheumatic aortic (valve) stenosis; I48.0 Paroxysmal atrial fibrillation; R13.10 Dysphagia, unspecified; Z79.02 Long term (current) use of antithrombotics/antiplatelets; Z79.82 Long term (current) use of aspirin; Z95.2 Presence of prosthetic heart valve; Z86.73 Personal history of transient ischemic attack (TIA), and cerebral infarction without residual deficits; Z82.49 Family history of ischemic heart disease and other diseases of the circulatory system; Z87.891 Personal history of nicotine dependence
CPT/HCPCS: 31500; 36245; 36569; 36600; 51702; 71250; 76937; 82270; 82271; 82805; 83540; 83550; 83605; 83735; 84132; 85045; 87040; 87081; 87804; 92507; 92610; 93005; 93306; 94002; 94003; 94640; 94799; 96365; 96367; 96375; G0378; J0360; J0456; J0696; J1160; J1644; J1815; J1940; J2060; J2270; J2543; J2704; J2920; J2930; J3475; J3480; J3490; J7050; J7060